=== PATIENT | female | born 1960 | race Caucasian/White ===

== ENCOUNTER 2022-10-16 09:38 | Emergency (ER) | payer OTHER ==
[2022-10-16 10:01] VITALS: BP 135/76; PULSE 67; RESP 18; TEMP 98.7; BMI 28.6
== END 2022-10-16 10:45 | disposition home or self-care (01) ==
LOC: FER 09:38
PROC: 0HQGXZZ Repair Left Hand Skin, External Approach (ICD-10-PCS; principal; 2022-10-16)
DX: S61.211A Laceration without foreign body of left index finger without damage to nail, initial encounter (principal); W26.0XXA Contact with knife, initial encounter
CPT/HCPCS: 99282-25

== ENCOUNTER 2022-10-26 11:02 | Emergency (ER) | payer OTHER ==
[2022-10-26 11:08] VITALS: BP 121/74; PULSE 71; RESP 16; TEMP 98.1; BMI 29.5
== END 2022-10-26 11:45 | disposition home or self-care (01) ==
LOC: FER 11:02
DX: Z48.02 Encounter for removal of sutures (principal)
CPT/HCPCS: 99281-25